=== PATIENT | male | born 1930 | race Caucasian/White ===

== ENCOUNTER → 2017-02-10 | Outpatient (CLI) | payer MEDICARE, OTHER ==
[~2017-02-10] MED LIST: ACETAMINOPHEN650 M2 PO; CORTEF20 MG PO; ENSURE LIQUID237 ML PO; HYDROCHLOROTHIA50 MG PO; KLOR-CON20 MEQ PO; MYCOSTATIN 500,1 TAB PO; PROTONIX40 MG PO; TAMIFLU75 MG PO; VERAPAMIL ER180 MG PO; ZOFRAN ODT 4 MG4 MG SL
== END | disposition disaster alternative care site (69) ==
LOC: GLAB 09:40
DX: J02.0 Streptococcal pharyngitis (principal)

== ENCOUNTER → 2017-02-10 | Outpatient (CLI) | payer MEDICARE, OTHER ==
[2017-02-10 09:44] LABS: BASOPHIL # 0.1 K/uL (0.0-0.2); BASOPHIL % 0.6 %; EOSINOPHIL # 0.2 K/uL (0.0-0.5); HEMOGLOBIN 12.1 g/dL (11.0-16.0); IMMATURE GRANULOCYTE % 0.5 %; LYMPHOCYTE # 1.7 K/uL (0.8-4.0); LYMPHOCYTE % 19.7 %; MCH 26.9 pg (27.0-34.0); MCV 86.7 fl (83.0-98.0); MONOCYTE # 0.8 K/uL (0.0-1.0); MONOCYTE % 9.2 %; MPV 10.4 fl (9.4-12.4); NRBC % 0 /100WBC (0-0.00); PLATELET COUNT 370 K/uL (150-450); RDW-CV 14.6 % (11.9-14.6); WBC 8.8 K/uL (4.0-11.0)
[2017-02-10 09:58] LABS: BILIRUBIN URINE NEGATIVE (NEGATIVE); BLOOD URINE NEGATIVE /UL (NEGATIVE); COLOR URINE YELLOW (YELLOW); GLUCOSE URINE NEGATIVE (NEGATIVE); KETONE URINE NEGATIVE (NEGATIVE); LEUKOCYTES URINE 25 /UL (NEGATIVE); NITRITE URINE NEGATIVE (NEGATIVE); PROTEIN URINE 30 mg/dL (NEGATIVE); SPEC GRAVITY URINE 1.015 (1.003-1.035); TURBIDITY URINE CLEAR (CLEAR); UROBILINOGEN URINE NORMAL (NORMAL)
[2017-02-10 10:04] LABS: ANION GAP 14.6 (10.0-19.0); CALCIUM 8.9 mg/dL (8.5-10.5); CREATININE 1.3 mg/dL (0.6-1.3); POTASSIUM 3.6 mMol/L (3.7-5.1); TOTAL BILIRUBIN 0.4 mg/dL (0.0-1.5); TOTAL PROTEIN 7.5 g/dL (6.0-8.4)
[2017-02-10 10:18] LABS: RBC URINE NEGATIVE #/HPF (NEGATIVE); WBC URINE 0-2 #/HPF (NEGATIVE)
[2017-02-10 10:19] LABS: BACTERIA URINE RARE (NEGATIVE); EPITHELIAL URINE RARE #/HPF (NEGATIVE); MUCUS URINE NEGATIVE (NEGATIVE)
== END | disposition disaster alternative care site (69) ==
LOC: GLAB 08:45
PROVIDERS: Family Medicine
DX: F50.9 Eating disorder, unspecified (principal); R26.2 Difficulty in walking, not elsewhere classified